=== PATIENT | female | born 1995 | race Caucasian/White ===

== ENCOUNTER 2024-12-08 13:36 | Emergency (ER) | payer OTHER, SELFPAY ==
[2024-12-08 13:38] VITALS: BP 117/84
[2024-12-08 14:01] LABS: % Basophils 0.1 % (0-2); % Eosinophils 0.4 % (0-6); % Immature Granulocytes 0.3 % (0-0.5); % Lymphocytes 11.4 % (20.5-51.1); % Monocytes 9.2 % (1.7-9.3); % Neutrophils 78.6 % (42.2-75.2); Absolute Lymphocytes 0.8 10^3/uL (1.2-3.4); Absolute Monocytes 0.6 10^3/uL (0.1-0.6); Absolute Neutrophils 5.3 10^3/uL (1.4-6.5); Mean Corp Hgb Conc. 34.1 g/dL (33.0-37.0); Mean Corpuscular Hgb 31.3 pg (27.0-31.0); Mean Corpuscular Volume 91.5 fL (81.0-99.0); Mean Platelet Volume 8.8 fL (7.4-10.4); Nucleated Red Blood Cells % 0 %; Platelet Count 241 10^3/uL (130-400); Red Blood Cell Count 4.48 10^6/uL (4.20-5.40); Red Cell Dist. Width 12.1 % (11.5-14.5); White Blood Cell Count 6.8 10^3/uL (4.8-10.8)
[2024-12-08 14:16] LABS: HCG, Serum Qualitative Screen Negative
[2024-12-08 14:17] LABS: ALT (SGPT) 19 U/L (0-35); AST (SGOT) 25 U/L (14-36); Albumin 4.1 g/dl (3.5-5.0); Alkaline Phosphatase 52 U/L (38-126); Blood Urea Nitrogen 13 mg/dl (7-17); Carbon Dioxide 26 mmol/L (22-30); Chloride 103 mmol/L (98-107); Glucose 100 mg/dl (70-99); Potassium 3.9 mmol/L (3.5-5.1); Sodium 137 mmol/L (135-145); Total Bilirubin 0.2 mg/dl (0.2-1.3); Total Protein 7.4 g/dl (6.3-8.2); eGFR > 60.00
--- NOTE | 2024-12-08 14:19 | EDRN ---
Pts mother asking for apple juice for pt. Pt given apple juice.
--- NOTE | 2024-12-08 14:51 | ED.GENMED ---
History of Present Illness
General
Chief Complaint: Cold/Flu/URI Symptoms
Source: patient and family (mother)
Time Seen by Provider: 12/08/24 14:44
Nursing documentation reviewed up to this point in time: agreed with
History of Present Illness
History of Present Illness:
Patient to ED with complaint of fever, sorethroat, cough, fatigue, vomiting. States she is unable to keep anything down. Symptoms started 4 days ago. Today she was seen by PCP and tested pos for Flu. PCP is concerned that she is dehydrated and
would like her to recieve fluid bolus. Brought to ED by mother for eval.
Past History
Past History
ED Past Medical History: Psychiatric (ADHD) and Other
Social History
Tobacco: Non-smoker
Alcohol: None
Drug: None
Living: with family
Review of Systems
Review of Systems
Allergies reviewed?: Yes
Other source history: family
All Other Systems: ROS reviewed and negative except as documented in HPI and ROS
Constitutional: Reports fever and fatigue
EENT: Reports sore throat
Respiratory: Reports cough
Cardiac: Reports no symptoms
ABD/GI: Reports nausea and vomiting
: Reports no symptoms
Musculoskeletal: Reports no symptoms
Skin: Reports no symptoms
Neurological: Reports weakness
Psychiatric: Reports no symptoms
Phy Exam
General Physical Exam
General Presentation: well appearing and no apparent distress
General age: appears stated age
General Skin: warm and dry
General Habitus: normal
General Mental: alert
Cardiovascular Exam
Cardiovascular Exam: regular rate/rhythm and no edema
Pulmonary Exam
Pulmonary Exam: lungs clear and no respiratory distress
Gastrointestinal Exam
Gastrointestinal Exam: normal bowel sounds, non tender, soft, no organomegaly, non distended and no cva tenderness
Musculoskeletal Exam
Musculoskeletal Exam: full ROM and neuro vasc intact
Skin Exam
Skin Exam: normal color, warm/dry and no rash
Psychiatric Exam
Psychiatric Exam: normal mood/affect
Course
Orders/Labs/Results
Orders:
Orders
12/08/24 13:43
Test Result ONCE
12/08/24 13:47
Complete Blood Count/With Diff Urgent
Comprehensive Metabolic Panel Urgent
HCG, Serum Qualitative Screen Urgent
12/08/24 14:50
0.9% Sodium Chloride 1000 ml [Nss] 1,000 ml IV BOLUS
Ketorolac [Toradol] 30 mg IV NOW STA
Ondansetron Injectable [Zofran] 4 mg IV NOW STA
Abnormal Lab Results
12/08/24
13:47
MCH 31.3 H pg
(27.0-31.0)
Absolute Lymphs (auto) 0.8 L 10^3/uL
(1.2-3.4)
Neutrophils % 78.6 H %
(42.2-75.2)
Lymphocytes % 11.4 L %
(20.5-51.1)
Glucose 100 H mg/dl
(70-99)
12/08/24 13:47
12/08/24 13:47
Vital Signs
Initial and Last Documented VS:
Initial Vital Signs
Temp Pulse Resp BP Pulse Ox
98.9 F 95 18 117/84 99
12/08/24 13:38 12/08/24 13:38 12/08/24 13:38 12/08/24 13:38 12/08/24 13:38
Last Documented Vital Signs
Temp Pulse Resp BP Pulse Ox
98.9 F 95 18 117/84 99
12/08/24 13:38 12/08/24 13:38 12/08/24 13:38 12/08/24 13:38 12/08/24 13:38
Update Note
Update Note:
Patient to ED with complaint of n/v, fever, cough x 4 days. Starting to tolerate sips of water. Sent to E by PCP for IV fluid bolus, concern for dehydration. Labs reviewed, no concerning findings. She does present weak. WIll give NSS bolus and
IV zofran. WIll provide rx for zofan to be taken as needed. Given instructions on s/s to return to ED and she is agreeable to plan.
ED Attending Note
-
Portions of this chart may have been created with voice recognition software.� Occasional wrong word or��sound alike� substitutions may have occurred due to the inherent limitations of voice recognition software.
Discharge Plan
Departure
Prescriptions:
No Action
risperidone 1 MG tablet,disintegrating
1 mg PO DAILY
risperidone 1 MG tablet,disintegrating
2 mg PO HS
Referrals:
Veronica Liu MD [Family Provider] -
Interventions
Interventions:
*Risk Screen - Suicide Last Done: 12/08/24 14:30
*Neglect/Abuse Screening Last Done: 12/08/24 14:30
ED- Fall Risk Assessment Last Done: 12/08/24 14:30
ED- Pulmonary Assessment Last Done: 12/08/24 14:30
Discharge Date and Time
Print Language: LAO
[2024-12-08] MEDS: ZOFRAN 4 MG IV (15:34)
[2024-12-08] MEDS: NSS 1000 IV (15:34)
[2024-12-08] MEDS: TORADOL 30 MG IV (15:34)
[2024-12-08 16:42] VITALS: BP 118/75
== END 2024-12-08 16:45 | disposition home or self-care (01) ==
LOC: EMR 13:36
PROVIDERS: Emergency Medicine; EMERGENCY PHYSICIAN Emergency Medicine; FAMILY PHYSICIAN Family Medicine
DX: J11.1 Influenza due to unidentified influenza virus with other respiratory manifestations (principal); R11.10 Vomiting, unspecified
CPT/HCPCS: 99284; 96374; 96375; 96361; 80053; 84703; 85025